=== PATIENT | female | born 1950 | race Caucasian/White ===

== ENCOUNTER 2016-07-23 01:21 | Emergency (ER) | payer MEDICARE, BC ==
[2016-07-23] MEDS ORDERED: NITROGLYCERIN 0.4 MG TAB SL PRN (01:27)
[2016-07-23] MEDS ORDERED: SODIUM CHLORIDE 0.9% FLUSH 10 ML SOL IV PRN (01:27)
[2016-07-23 01:51] LABS: BASOPHILS % (AUTO) 1 % (0-3); EOSINOPHILS % (AUTO) 1 % (0-9); HEMATOCRIT 26 % (35-47); MEAN CORPUSCULAR HGB CONC 33.8 gm/dl (32.0-36.0); MONOCYTES % (AUTO) 7.2 % (0-12); NEUTROPHILS % (AUTO) 75.9 % (37-80)
[2016-07-23 01:52] LABS: MEAN CORPUSCULAR VOLUME 81 fL (81-99)
[2016-07-23 01:55] VITALS: TEMP 99.3
[2016-07-23 02:02] LABS: CALCIUM 8.7 mg/dl (8.5-10.1); GLOM FILT RATE 20 mL/min (>60); POTASSIUM 4.9 mMol/L (3.5-5.1); SODIUM 133 mMol/L (136-145)
[2016-07-23] MEDS ORDERED: NITROGLYCERIN 0.4 MG TAB SL ONE (02:07)
[2016-07-23] MEDS ORDERED: MORPHINE SULFATE 10 MG/ML SOL ONE (02:15)
[2016-07-23] MEDS ORDERED: MORPHINE SULFATE 10 MG/ML SOL IV ONE ×2 (02:18→02:38)
[2016-07-23] MEDS ORDERED: METOPROLOL TARTRATE 25 MG TAB ONE (02:20)
[2016-07-23] MEDS ORDERED: SODIUM CHLORIDE 0.9% 1000ML 1,000 ML IV ONE (02:20)
[2016-07-23] MEDS ORDERED: METOPROLOL TARTRATE 50 MG TAB PO ONE (02:22)
[2016-07-23] MEDS ORDERED: APAP/OXYCODONE 325/5 TAB ONE (02:50)
[2016-07-23] MEDS ORDERED: APAP/OXYCODONE 325/5 TAB PO ONE (02:50)
[2016-07-23] MEDS ORDERED: HYDROMORPHONE HCL 2 MG/ML 1 ML SOL IV ONE (03:16)
[2016-07-23] MEDS ORDERED: HYDROMORPHONE HCL 2 MG/ML 1 ML SOL ONE (03:17)
[2016-07-23 07:26] VITALS: BP 94/57; PULSE 74; RESP 15; O2SAT 92
== END 2016-07-23 07:26 | disposition home or self-care (01) | DRG 313 ==
LOC: ED 01:21
DX: R07.89 Other chest pain (principal); M25.511 Pain in right shoulder
CPT/HCPCS: 71010; 80048; 82550; 84484; 85025; 93005; 96365; 96374; 96375; 99284; 99285; J1170; J2270

== ENCOUNTER 2016-09-16 07:27 | Inpatient (IN) | payer MEDICARE, BC ==
[2016-09-16] MEDS ORDERED: ONDANSETRON HCL 4 MG/2 ML SOL IV ONE (08:02)
[2016-09-16] MEDS ORDERED: LIDOCAINE HCL 2% (VISCOUS) 20 ML SOL PO ONE (08:10)
[2016-09-16] MEDS ORDERED: ALUMINUM/MAGNESIUM 30 ML SUS PO ONE (08:10)
[2016-09-16] MEDS ORDERED: ONDANSETRON HCL 4 MG/2 ML SOL ONE (08:12)
[2016-09-16] MEDS ORDERED: LIDOCAINE HCL 2% (VISCOUS) 20 ML SOL ONE (08:12)
[2016-09-16] MEDS ORDERED: ALUMINUM/MAGNESIUM 30 ML SUS ONE (08:12)
[2016-09-16] MEDS ORDERED: SODIUM CHLORIDE 0.9% 500 ML SOL IV SCH (08:15)
[2016-09-16] MEDS ORDERED: FUROSEMIDE 40 MG SOL IV ONE (08:18)
[2016-09-16] MEDS ORDERED: FUROSEMIDE 40 MG SOL ONE (08:19)
[2016-09-16] MEDS: SODIUM CHLORIDE 0.9% FLUSH 10 ML SOL IV PRN (08:20)
[2016-09-16 08:28] LABS: BASOPHILS % (AUTO) 0 % (0-3); EOSINOPHILS % (AUTO) 0 % (0-9); HEMATOCRIT 31 % (35-47); MEAN CORPUSCULAR HGB CONC 32.7 gm/dl (32.0-36.0); MONOCYTES % (AUTO) 8.7 % (0-12); NEUTROPHILS % (AUTO) 85.9 % (37-80)
[2016-09-16 08:31] LABS: MEAN CORPUSCULAR VOLUME 78 fL (81-99)
[2016-09-16 08:46] LABS: APPEARANCE,URINE Slightly Cloudy; BILIRUBIN,URINE NEGATIVE (NEGATIVE); COLOR,URINE Yellow; GLUCOSE, URINE (UA) 2+ (NEGATIVE); KETONES,URINE TRACE (NEGATIVE); LEUKOCYTE ESTERASE ,URINE 1+ (NEGATIVE); NITRATE,URINE NEGATIVE (NEGATIVE); OCCULT BLOOD,URINE 3+ (NEG-TRACE); PH,URINE 5.5; UROBILINOGEN,URINE 0.2 (0.2-1.0 EU)
[2016-09-16 08:48] LABS: ALBUMIN 2.8 gm/dl (3.4-5.0); CALCIUM 9.3 mg/dl (8.5-10.1); POTASSIUM 4.7 mMol/L (3.5-5.1)
[2016-09-16 09:27] LABS: WBC,URINE TNTC (0-5AV/HPF)
[2016-09-16] MEDS ORDERED: NOVOLOG FLEXPEN SC SCH (10:30)
[2016-09-16] MEDS: SODIUM CHLORIDE 0.9% 1000ML 1,000 ML IV SCH ×2 (11:20→21:57)
[2016-09-16] MEDS ORDERED: LEVOFLOXACIN 25 MG/ML 500 MG in SODIUM CHLORIDE 0.9% 100 ML 100 ML IV SCH (12:00)
[2016-09-16] MEDS ORDERED: LEVOFLOXACIN 500 MG in 100 ML (PREMIX) IV SCH (13:00)
[2016-09-16] MEDS: NOVOLOG FLEXPEN SC SCH ×2 (13:04→16:35)
[2016-09-16] MEDS ORDERED: HUMALOG PEN 100 U/ML SC SCH (16:30)
[2016-09-16] MEDS ORDERED: HYDROMORPHONE HCL 2 MG/ML 1 ML SOL IV PRN (18:49)
[2016-09-16] MEDS ORDERED: PATIENT EDUCATION 1 MISC PRN (20:06)
[2016-09-17] MEDS: NOVOLOG FLEXPEN SC SCH ×5 (06:37→20:26)
[2016-09-17 07:31] LABS: CALCIUM 7.9 mg/dl (8.5-10.1); POTASSIUM 4.9 mMol/L (3.5-5.1)
[2016-09-17 07:35] LABS: BASOPHILS % (AUTO) 0 % (0-3); EOSINOPHILS % (AUTO) 1 % (0-9); HEMATOCRIT 27 % (35-47); MEAN CORPUSCULAR HGB CONC 32.2 gm/dl (32.0-36.0); MONOCYTES % (AUTO) 8.1 % (0-12); NEUTROPHILS % (AUTO) 66.5 % (37-80)
[2016-09-17 07:41] LABS: MEAN CORPUSCULAR VOLUME 79 fL (81-99)
[2016-09-17] MEDS: SODIUM CHLORIDE 0.9% 1000ML 1,000 ML IV SCH (08:12)
[2016-09-17] MEDS ORDERED: SODIUM CHLORIDE 0.9% 500 ML 500 ML IV ONE (09:56)
[2016-09-17] MEDS: DEXTROSE/SALINE 0.45%/KCL10MEQ 1,000 ML/1,000 ML SOL IV SCH ×2 (10:45→22:06)
[2016-09-17] MEDS ORDERED: LEVOFLOXACIN 25 MG/ML SOL IV ONE (12:24)
[2016-09-17] MEDS ORDERED: SODIUM CHLORIDE 0.9% 100 ML 100 ML IV ONE (12:24)
[2016-09-17] MEDS: LEVOFLOXACIN 25 MG/ML 250 MG in SODIUM CHLORIDE 0.9% 100 ML 100 ML IV SCH (12:33)
[2016-09-18 07:24] LABS: CALCIUM 8.2 mg/dl (8.5-10.1); POTASSIUM 4.5 mMol/L (3.5-5.1)
[2016-09-18 07:33] LABS: BASOPHILS % (AUTO) 1 % (0-3); EOSINOPHILS % (AUTO) 2 % (0-9); HEMATOCRIT 28 % (35-47); MEAN CORPUSCULAR HGB CONC 33.1 gm/dl (32.0-36.0); MONOCYTES % (AUTO) 7.7 % (0-12); NEUTROPHILS % (AUTO) 68.1 % (37-80)
[2016-09-18 07:36] LABS: MEAN CORPUSCULAR VOLUME 79 fL (81-99)
[2016-09-18] MEDS: DEXTROSE/SALINE 0.45%/KCL10MEQ 1,000 ML/1,000 ML SOL IV SCH (07:58)
[2016-09-18] MEDS: NOVOLOG FLEXPEN SC SCH ×4 (07:59→20:40)
[2016-09-18] MEDS ORDERED: DEXTROSE/SALINE 0.45%/KCL10MEQ 1,000 ML/1,000 ML SOL IV SCH (12:25)
[2016-09-18] MEDS ORDERED: SODIUM CHLORIDE 0.9% 100 ML 100 ML IV ONE (13:30)
[2016-09-18] MEDS ORDERED: LEVOFLOXACIN 25 MG/ML SOL IV ONE (13:30)
[2016-09-18] MEDS: LEVOFLOXACIN 25 MG/ML 250 MG in SODIUM CHLORIDE 0.9% 100 ML 100 ML IV SCH (13:49)
[2016-09-19] MEDS: NOVOLOG FLEXPEN SC SCH ×4 (08:29→20:30)
[2016-09-19] MEDS ORDERED: LISINOPRIL PO SCH (09:00)
[2016-09-19] MEDS ORDERED: [UNRECOGNIZED DRUG - OTHER] PO SCH (09:00)
[2016-09-19] MEDS ORDERED: HYDROCHLOROTHIAZIDE PO SCH (09:00)
[2016-09-19] MEDS: CIPROFLOXACIN HCL 500 MG TAB PO SCH ×2 (09:43→20:32)
[2016-09-19] MEDS: HYDROCHLOROTHIAZIDE 25 MG TAB PO SCH (09:44)
[2016-09-19] MEDS: LISINOPRIL 5 MG TAB PO SCH (09:44)
[2016-09-19] MEDS: SODIUM CHLORIDE 0.9% FLUSH 10 ML SOL IV PRN (14:26)
[2016-09-19 20:21] VITALS: O2SAT 95
[2016-09-19] MEDS ORDERED: LEVEMIR PEN SC SCH (21:00)
[2016-09-19] MEDS: SODIUM CHLORIDE 0.9% FLUSH 10 ML SOL IV SCH (21:38)
[2016-09-20] MEDS: SODIUM CHLORIDE 0.9% FLUSH 10 ML SOL IV SCH (06:27)
[2016-09-20] MEDS: NOVOLOG FLEXPEN SC SCH (06:31)
[2016-09-20 07:14] LABS: CALCIUM 8.8 mg/dl (8.5-10.1); POTASSIUM 3.8 mMol/L (3.5-5.1)
[2016-09-20 08:23] VITALS: BP 110/65; PULSE 95; RESP 20; TEMP 97.4
[2016-09-20] MEDS: CIPROFLOXACIN HCL 500 MG TAB PO SCH (09:12)
[2016-09-20] MEDS: HYDROCHLOROTHIAZIDE 25 MG TAB PO SCH (09:13)
[2016-09-20] MEDS: LISINOPRIL 5 MG TAB PO SCH (09:14)
== END 2016-09-20 10:20 | disposition home or self-care (01) | DRG 389 ==
LOC: ED 07:27 → ACUTE CARE 10:54 → UNDOADMOB 10:54 → OBSVTOIN 10:55 → ACUTE CARE 10:55
PROVIDERS: ADMIT Family Medicine; ATTEND Family Medicine
DX: K56.60 Unspecified intestinal obstruction (principal); R82.90 Unspecified abnormal findings in urine; N18.4 Chronic kidney disease, stage 4 (severe); N39.0 Urinary tract infection, site not specified; E11.9 Type 2 diabetes mellitus without complications; I10 Essential (primary) hypertension; B96.20 Unspecified Escherichia coli [E. coli] as the cause of diseases classified elsewhere
CPT/HCPCS: 36415; 74020; 74176; 78708; 80048; 80053; 81001; 82150; 82962; 85025; 87077; 87088; 87186; 96365; 96372; 96374; 96375; 99070; 99231; 99284; 99285; A9562; J1170; J1815; J1940; J1956; J2405

== ENCOUNTER 2018-10-24 08:03 | Day surgery (SDC) | payer MEDICARE, BC ==
[2018-10-24] MEDS ORDERED: LIDOCAINE HCL 1% MPF 30 SOL ONE (08:23)
[2018-10-24] MEDS ORDERED: PROPOFOL 500 MG/50 ML EMU IV ONE (08:23)
[2018-10-24 10:15] VITALS: BP 121/78; PULSE 86; RESP 18; TEMP 97; O2SAT 98
== END 2018-10-24 10:37 | disposition home or self-care (01) | DRG 392 ==
LOC: SURG 08:03
PROVIDERS: ATTEND Surgery
DX: R19.5 Other fecal abnormalities (principal); K55.9 Vascular disorder of intestine, unspecified; K92.1 Melena; Z80.0 Family history of malignant neoplasm of digestive organs; Z86.010 Personal history of colon polyps; D12.0 Benign neoplasm of cecum; D12.5 Benign neoplasm of sigmoid colon; D50.9 Iron deficiency anemia, unspecified
CPT/HCPCS: J2001; J2704

== ENCOUNTER 2018-12-02 08:08 | Emergency (ER) | payer MEDICARE, BC ==
[2018-12-02] MEDS ORDERED: SODIUM CHLORIDE 0.9% 1000ML 1,000 ML IV ONE (08:20)
[2018-12-02] MEDS ORDERED: FENTANYL 100MCG/2ML SOL IV ONE ×3 (08:30→11:52)
[2018-12-02] MEDS ORDERED: ONDANSETRON HCL 4 MG/2 ML SOL IV ONE (08:31)
[2018-12-02 08:35] LABS: BASOPHILS % (AUTO) 0 % (0-3); EOSINOPHILS % (AUTO) 0 % (0-9); HEMATOCRIT 35 % (35-47); HEMOGLOBIN 11.1 gm/dl (12.0-15.5); MEAN CORPUSCULAR HEMOGLOBIN 26.4 pg (27.0-32.0); MEAN CORPUSCULAR HGB CONC 31.9 gm/dl (32.0-36.0); MEAN CORPUSCULAR VOLUME 83 fL (81-99); MONOCYTES % (AUTO) 4.9 % (0-12); NEUTROPHILS % (AUTO) 85.8 % (37-80)
[2018-12-02] MEDS ORDERED: ONDANSETRON HCL 4 MG/2 ML SOL ONE (08:35)
[2018-12-02] MEDS ORDERED: FENTANYL 100MCG/2ML SOL ONE ×3 (08:36→11:59)
[2018-12-02 08:39] LABS: LACTIC ACID 1.6 mMol/L (0.0-2.0)
[2018-12-02 08:43] LABS: CALCIUM 8.8 mg/dl (8.5-10.1); CARBON DIOXIDE 22.3 mEq/L (21-32); CREATININE 2.39 mg/dl (0.60-1.00); CRP INFLAMMATORY 1.62 mg/dl (0.00-0.33); POTASSIUM 3.9 mMol/L (3.5-5.1)
[2018-12-02 09:09] VITALS: TEMP 97.6
[2018-12-02 09:44] LABS: SEDIMENTATION RATE 72 mm/hr (0-20)
[2018-12-02] MEDS ORDERED: SODIUM CHLORIDE 0.9% 1000ML 1,000 ML IV SCH (12:45)
[2018-12-02 12:46] VITALS: BP 165/92; PULSE 111; RESP 20; O2SAT 95
== END 2018-12-02 13:05 | disposition short-term general hospital (02) | DRG 390 ==
LOC: ED 08:08
DX: K56.609 Unspecified intestinal obstruction, unspecified as to partial versus complete obstruction (principal); E11.9 Type 2 diabetes mellitus without complications
CPT/HCPCS: 71045; 74019; 80048; 83605; 85025; 85651; 86140; 96365; 96366; 96374; 96375; 99284; 99285; J2405; J3010